=== PATIENT | female | born 1985 | race Caucasian/White ===

== ENCOUNTER 2018-02-07 09:46 | Emergency (ER) | payer MEDICAID ==
[~2018-02-07] VITALS: Ht 162.6 cm; Wt 82.0 kg
[2018-02-07 09:49] VITALS: BP 127/74
[2018-02-07] MEDS ORDERED: KETOROLAC 60MG/2ML VIAL IM STA (10:43)
[2018-02-07] MEDS ORDERED: CYCLOBENZAPRINE 10MG TABLET PO ONE (10:45)
== END 2018-02-07 11:15 | disposition left against medical advice (07) ==
LOC: ER 10:28
DX: M54.5 Low back pain (principal)
CPT/HCPCS: 99281; J1885

== ENCOUNTER 2018-02-10 09:33 | Emergency (ER) | payer MEDICAID ==
[~2018-02-10] VITALS: Ht 152.4 cm; Wt 82.0 kg
[2018-02-10 09:58] VITALS: BP 133/80
[2018-02-10 11:43] LABS: CLARITY URINE CLOUDY (CLEAR); COLOR URINE ORANGE (YELLOW); KETONES URINE NEGATIVE (NEGATIVE); LEUKOCYTE ESTERASE URINE 2+ (NEGATIVE); NITRITE URINE NEGATIVE (NEGATIVE); OCCULT BLOOD URINE 3+ (NEGATIVE); PH URINE 8.5 (4.5-8.0); PROTEIN URINE 1+ (NEGATIVE); SPECIFIC GRAVITY URINE 1.013 (1.005-1.030); UROBILINOGEN URINE 0.2 E.U./dL (0.2-1.0)
== END 2018-02-10 14:03 | disposition left against medical advice (07) ==
LOC: ER 09:33
DX: M54.9 Dorsalgia, unspecified (principal); Z53.21 Procedure and treatment not carried out due to patient leaving prior to being seen by health care provider
CPT/HCPCS: 81003; 87086

== ENCOUNTER 2018-03-13 10:26 | Emergency (ER) | payer MEDICAID ==
[~2018-03-13] VITALS: Ht 152.4 cm; Wt 86.0 kg
[2018-03-13] MEDS ORDERED: KETOROLAC 30MG/ML VIAL IM ONE (12:45)
[2018-03-13] MEDS ORDERED: CYCLOBENZAPRINE 10MG TABLET PO ONE (12:45)
[2018-03-13 13:08] VITALS: BP 119/74
== END 2018-03-13 14:13 | disposition home or self-care (01) ==
LOC: ER 10:26
DX: G89.29 Other chronic pain (principal); M54.5 Low back pain; R03.0 Elevated blood-pressure reading, without diagnosis of hypertension
CPT/HCPCS: 81025; 96372; 99283; J1885